=== PATIENT | male | born 1960 | race African-American/Black ===

== ENCOUNTER 2023-11-15 00:17 | Emergency (ER) | payer MEDICARE, MEDICAID, SELFPAY ==
[2023-11-15 00:16] VITALS: BP 133/95; PULSE 98; RESP 17; TEMP 36.1; O2SAT 100
[2023-11-15] MEDS: HALOPERIDOL LACTATE 5 MG/ML VIAL IV PUSH (00:53)
[2023-11-15] MEDS: LIDO 1%/EPINEPHRINE 1:100,000 20 ML VIAL 10 ML INFILTRATE (00:53)
[2023-11-15 00:54] VITALS: BP 133/92; PULSE 95; RESP 19; O2SAT 98
[2023-11-15] MEDS: MIDAZOLAM HCL (*CRX) 2 MG/2 ML VIAL 5 MG IV PUSH (00:54)
[2023-11-15 01:22] VITALS: BP 125/98; PULSE 104; RESP 19; O2SAT 96
--- NOTE | 2023-11-15 01:30 | ED.GENADULT ---
HPI - General Adult General Chief complaint: Dental/Oral Stated complaint: DENTAL INFECTION Time Seen by Provider: 11/15/23 00:18 History of Present Illness HPI narrative: This is a 63-year-old male presenting from [facility] for a dental infection. Patient has had swelling of his left jaw. He placed on Augmentin without improvement. Now he has a fluctuant mass on the mucosal surface of the left lower molars. swelling of the left cheek as well. No difficulty breathing/ swallowing. No fever chills nausea vomiting or diarrhea. Patient states that if I try to poke him with a needle he will sock me. Related Data Allergies Allergy/AdvReac Type Severity Reaction Status Date / Time No Known Allergies Allergy Verified 11/15/23 00:50 [facility] Past Medical History Medical History (Updated 11/15/23 @ 01:37 by Yoshi Bey MD) Schizophrenia Exam Narrative: APPEARANCE: No apparent distress. Head: almost all of the patient's teeth are decayed to the gumline. On the lower left molars there is a large fluctuant mass with surrounding induration of the cheek EYES: EOMI, NOSE: Atraumatic NECK: Trachea midline RESPIRATORY: No increased rate of breathing CARDIOVASCULAR: RRR, ABDOMINAL: Non-distended MUSCULOSKELETAl: No obvious deformities NEURO: Alert. Moving 4/4 extremities SKIN:: Warm, dry. Normal color PSYCHIATRIC: Normal affect Course Vital Signs Vital signs: Vital Signs Temperature 97.0 F L 11/15/23 00:16 Pulse Rate 98 11/15/23 00:16 Respiratory Rate 17 11/15/23 00:16 Blood Pressure 133/95 H 11/15/23 00:16 Pulse Oximetry 100 11/15/23 00:16 Oxygen Delivery Room Air 11/15/23 00:16 Temperature 97.0 F L 11/15/23 00:16 Pulse Rate 104 H 11/15/23 01:22 Respiratory Rate 19 11/15/23 01:22 Blood Pressure 125/98 H 11/15/23 01:22 Pulse Oximetry 96 11/15/23 01:22 Oxygen Delivery Room Air 11/15/23 00:16 Medical Decision Making MDM Narrative Medical decision making narrative: -Course: 63-year-old male presenting with a dental abscess. Patient has history of schizophrenia and erratic behavior. Given anxiolysis with Versed and Haldol. An inferior alveolar block was performed local anesthetic applied to the area of greatest fluctuance. Stab incision was made with 11 blade with return of purulent material. Loculations broken up with a hemostat. Ultrasound revealed a small superficial abscess on the outside patient's cheek that was lanced. Patient will be discharged back to the snf on clindamycin. Patient needs dental follow-up in the next 24-48 hours. -DDX includes but is not limited to: Dental abscess, Alberto's angina, -Co-morbidities complicating care: schizophrenia, poor dentition -Social determinants of health: disabled, snf resident psychiatric illness -Procedures: incision and drainage -Interventions: 5 mg Haldol, 5 mg Versed -Shared decision making / Disposition: discharged -RX clindamycin 450mg PO tid x10 days. Vital Signs Vital Signs: Vital Signs Temperature 97.0 F L 11/15/23 00:16 Pulse Rate 98 11/15/23 00:16 Respiratory Rate 17 11/15/23 00:16 Blood Pressure 133/95 H 11/15/23 00:16 Pulse Oximetry 100 11/15/23 00:16 Oxygen Delivery Room Air 11/15/23 00:16 Temperature 97.0 F L 11/15/23 00:16 Pulse Rate 104 H 11/15/23 01:22 Respiratory Rate 19 11/15/23 01:22 Blood Pressure 125/98 H 11/15/23 01:22 Pulse Oximetry 96 11/15/23 01:22 Oxygen Delivery Room Air 11/15/23 00:16 Discharge Plan Discharge Clinical Impression: Dental abscess Patient Disposition: NH [facility] Living Condition: Stable Instructions: Antibiotic Form, Dental Abscess (ED) Additional Instructions: Néstor Fabian presented with a dental abscess. This was incised and drained. The patient should add clindamycin 450mg TID x10 days to his antibiotic regimen. The patient needs to see a dentist in the next 24-48 sherron
[2023-11-15 04:30] VITALS: BP 119/78; PULSE 97; RESP 19; O2SAT 98
== END 2023-11-15 04:32 ==
PROVIDERS: Emergency Provider Emergency Medicine; PCP Internal Medicine
DX: K04.7 Periapical abscess without sinus (principal); F20.9 Schizophrenia, unspecified
CPT/HCPCS: 96374; 96375; 99284; J1630; J2250